=== PATIENT | male | born 1945 | race Caucasian/White ===

== ENCOUNTER 2016-06-01 08:30 | Emergency (ER) | payer MEDICARE, OTHER ==
[~2016-06-01] VITALS: Ht 185.4 cm; Wt 124.3 kg
[~2016-06-01 08:30] MED LIST: ALBU6.7H INH; ASPI81TA82 PO; ATEN-102 PO; ZITH250T PO; ZOCO40TA PO
[2016-06-01 08:36] VITALS: BP 136/75; PULSE 72; RESP 16; TEMP 98.1; O2SAT 96
[2016-06-01] MEDS ORDERED: PRED10PA2 PO (09:00)
[2016-06-01] MEDS ORDERED: HYDR50TA94 PO (09:00)
--- NOTE | 2016-06-01 09:00 | PD ---
HPI . Poison brown Chief Complaint: Skin Problem Time Seen by Provider: 08:44 Travel History International Travel<30 days: No Contact w/Intl Traveler<30days: No Traveled to known affect area: No History of Present Illness HPI Patient presents with a one-day history of poison brown. He has scattered shins. He states that his has the same thing. She has had symptoms for a week. They have been treating it with a spray poison brown medication. It does relieve the itching. He denies any systemic symptoms such as dyspnea or nausea. PFSH Past Medical History Hx Anticoagulant Therapy: Yes (asa 81 mg) Atrial Fibrillation: Yes Cardiovascular Problems: Yes (htn on meds, a-fib) High Cholesterol: Yes Diminished Hearing: No Hiatal Hernia: Yes Hypertension: Yes Immunizations Current: Yes Pneumonia: Yes Past Surgical History Abdominal Surgery: Yes (HERNIA) Genitourinary Surgery: Yes (HEMORROIDS) Tonsillectomy: Yes Other Surgery: Yes (HERNIA SX AND HEMRRHOID SX) Social History Alcohol Use: No Tobacco Use: No Substance Use: No Allergies-Medications (Allergen,Severity, Reaction): Coded Allergies: No Known Allergies (Unverified , 06/01/16) Reported Meds & Prescriptions Reported Meds & Active Scripts Active Proventil Hfa (Albuterol Sulfate) 6.7 Gm Aero 1-2 Puff INH Q6 PRN Zithromax Z-Mando (Azithromycin) 250 Mg Tab 250 Mg PO DIRECTED 5 Days 500 MG (2 TABLETS) PO ON DAY 1, THEN 250 MG (1 TABLET) PO ON DAYS 2 TO 5. Reported Zocor (Simvastatin) 40 Mg Tab 40 Mg PO HS Aspir-81 (Aspirin) 81 Mg Tab 81 Mg PO DAILY Atenolol 50 Mg Tab 50 Mg PO DAILY Review of Systems Except as stated in HPI: all other systems reviewed are Neg Respiratory: No: Shortness of Breath Gastrointestinal: No: Nausea Skin: Positive Rash, Positive Itching Physical Exam Narrative GENERAL: Healthy-appearing man in no acute distress SKIN: Warm and dry. Scattered small maculopapular lesions which are erythematous. HEAD: Atraumatic. Normocephalic. EYES: Pupils equal and round. ENT: No nasal bleeding or discharge. Mucous membranes pink and moist. NECK: Trachea midline. CARDIOVASCULAR: Regular rate and rhythm. RESPIRATORY: No accessory muscle use. GASTROINTESTINAL: Abdomen soft, non-tender, nondistended. MUSCULOSKELETAL: No obvious deformities. No edema. NEUROLOGICAL: Awake and alert. No obvious cranial nerve deficits. Motor grossly within normal limits. Normal speech. PSYCHIATRIC: Appropriate mood and affect; insight and judgment normal. Data Data Last Documented VS Vital Signs Date Time Temp Pulse Resp B/P Pulse Ox O2 Delivery O2 Flow Rate FiO2 06/01/16 08:36 98.1 72 16 136/75 96 MDM Medical Decision Making Medical Screen Exam Complete: Yes Emergency Medical Condition: Yes Differential Diagnosis Differential diagnosis of a rash includes but is not limited to allergic urticaria, contact dermatitis, viral exanthem, eczema Narrative Course Patient presents along with his with similar rashes. Diagnosis Primary Impression: Contact dermatitis Qualified Code: L23.7 - Allergic contact dermatitis due to plants, except food Scripts Hydroxyzine HCl 50 Mg Tab50 Mg PO QID PRN (itching) #30 TAB Ref 0 Prov:Sophia Araiza MD 06/01/16 Prednisone (48) 10 mg tab Dose Pack 10 Mg Dspk10 Mg PO DIRECTED #1 DSPK Ref 0 Prov:Sophia Araiza MD 06/01/16 Disposition: DISCHARGE HOME Condition: Stable Sophia Araiza MD Jun 01, 2016 09:00
[2016-06-01] MEDS ORDERED: ZOCO40TA PO (09:02)
[2016-06-01] MEDS ORDERED: ASPI81CH CHEW (09:02)
[2016-06-01] MEDS ORDERED: ATEN50TA PO (09:02)
== END 2016-06-01 09:42 | disposition home or self-care (01) ==
LOC: PHEFT 08:30
DX: L23.7 Allergic contact dermatitis due to plants, except food (principal); I48.91 Unspecified atrial fibrillation; I10 Essential (primary) hypertension; E78.00 Pure hypercholesterolemia, unspecified; Z79.899 Other long term (current) drug therapy
CPT/HCPCS: 99282